=== PATIENT | female | born 1990 | race Two or more races ===

== ENCOUNTER 2017-08-26 08:10 | Emergency (ER) | payer SELFPAY ==
[2017-08-26 08:15] VITALS: RESP 16
--- NOTE | 2017-08-26 08:26 | EDPHY ---
HPI/HX/ROS/PE/MDM Narrative: CHIEF COMPLAINT: Sore throat, otalgia HISTORY OF PRESENT ILLNESS: This patient is a healthy 27 year old female complaining of a sore throat ongoing for three days. Her discomfort is primarily the right side. She finds it difficult to swallow, including saliva. She had a fever initially but this stopped yesterday around 5pm. She has been taking Advil without relief of pain. She has not been drinking much water due to difficulty and pain when swallowing. Additionally, she has noted right-sided otalgia. No history of mono. She denies interacting with any sick contacts. No chills, chest pain, shortness of breath, palpitations, vomiting, diarrhea, urinary complaints, headache, lightheadedness. REVIEW OF SYSTEMS: Aside from elements discussed in the HPI, a comprehensive 10-point review of systems was reviewed and is negative. PAST MEDICAL HISTORY: Denies. SOCIAL HISTORY: Single. Lives in [place]. Employed. VITAL SIGNS: Reviewed by me GENERAL: Well-developed, well-nourished, no respiratory distress. Speaking with a somewhat muffled voice. HEENT: Atraumatic. Eyes: No icterus, no injection. Mouth: moist mucous membranes. 3+ tonsillar hypertrophy, right greater than left, with erythema and exudates. Neck: supple with no adenopathy. LUNGS: Clear to auscultation bilaterally, no wheezes, rhonchi or rales. CARDIAC: Regular rate and rhythm, no rubs, murmurs or gallops. ABDOMEN: Soft, nontender, nondistended, bowel sounds normal. BACK: No CVA tenderness. EXTREMITIES: No trauma. No edema. Range of motion is normal throughout. NEURO: Alert and oriented, grossly nonfocal. SKIN: Warm and dry, no rash. PSYCHIATRIC: Normal mentation, no agitation. Portions of this note were transcribed by a medical claims representative. I personally performed a history, physical exam, medical decision making, and confirmed accuracy of information the transcribed note. ED Course: 27 y/o female presents with three day history of pharyngitis. Exam reveals 3+ tonsillar hypertrophy, right greater than left, with erythema and exudates. Plan for step swab. Plan to administer 15mg IV Toradol, 10mg IV Decadron, and 1L IV NS for symptom relief. Patient presentation is consistent with bacterial tonsillitis. Plan to administer 600mg IV Clindamycin. Strep screen negative. Patient is feeling better following medication administration. Plan to discharge home in good condition with referral to ENT. Prescription for Clindamycin and Decadron provided. Follow up and return precautions discussed. The patient is comfortable with this plan. MDM: Differential diagnosis for the patient's sore throat was considered including but not limited to viral pharyngitis, bacterial pharyngitis, tonsillitis, tonsillar abscess, peritonsillar abscess, foreign body, epiglottitis, bacterial tracheitis. - Data Points Medications Given: Discontinued Medications Dexamethasone (Decadron Injection) 10 mg IVP EDNOW ONE Stop: 08/26/17 08:30 Last Admin: 08/26/17 08:46 Dose: 10 mg Clindamycin Phosphate/Dextrose (Cleocin 600 Mg (Premix)) 50 mls @ 100 mls/hr IV EDNOW ONE PRN Reason: Protocol Stop: 08/26/17 08:59 Last Admin: 08/26/17 08:44 Dose: 50 mls Sodium Chloride (Ns) 1,000 mls @ 0 mls/hr IV ONCE ONE; Wide Open PRN Reason: Protocol Stop: 08/26/17 08:30 Last Admin: 08/26/17 08:43 Dose: 1,000 mls Ketorolac Tromethamine (Toradol) 15 mg IVP EDNOW ONE Stop: 08/26/17 08:32 Last Admin: 08/26/17 08:45 Dose: 15 mg General Time Seen by Provider: 08/26/17 08:20 Initial Vital Signs: Initial Vital Signs Temperature (C) 37 C 08/26/17 08:12 Heart Rate 97 08/26/17 08:12 Respiratory Rate 16 08/26/17 08:12 Blood Pressure 104/68 08/26/17 08:12 O2 Sat (%) 97 08/26/17 08:12 O2 Delivery Mode Room Air Allergies/Adverse Reactions: No Known Allergies Allergy (Verified 08/26/17 08:12) Home Medications: Medication Instructions Recorded Clindamycin HCl [Clindamycin] 300 mg PO TID #30 cap 08/26/17 Dexamethasone [Decadron 4 MG (*)] 4 mg PO DAILY 2 Days tab 08/26/17 Hydrocodone/APAP 5/325 [Buchanan 1 tab PO Q6H PRN #10 tab 08/26/17 5/325 (RX)] Departure - Departure Disposition: Home, Routine, Self-Care Clinical Impression: Tonsillitis with exudate Condition: Good Instructions: Tonsillitis (ED) Additional Instructions: Please take antibiotics as directed. Clindamycin 300 mg by mouth 3 times a day times 10 days. Drink plenty of fluid. Please take ibuprofen 600 mg by mouth every 8 hr for pain as well as anti inflammation. You been given a prescription for Decadron. Please take this as directed for the next 2 days, starting tomorrow. Please follow up with [facility] if you're not improving as expected. For your sore throat, throat lozenges and salt water gargles may be helpful in diminishing the pain. Referrals: [facility] [Other] - As per Instructions Princess Velasquez MD [Medical Doctor] - As per Instructions Prescriptions: Clindamycin HCl [Clindamycin] 300 mg PO TID #30 cap Dexamethasone [Decadron 4 MG (*)] 4 mg PO DAILY 2 Days tab Hydrocodone/APAP 5/325 [Buchanan 5/325 (RX)] 1 tab PO Q6H PRN #10 tab PRN Reason: Pain Report Scribed for: Ethel Wilson Report Scribed by: Regla Mckeon Date of Report: 08/26/17 Time of Report: 08:36
[2017-08-26] MEDS ORDERED: DEXAMETHASONE 10 MG/ML VIAL IVP ONE (08:29)
[2017-08-26] MEDS ORDERED: NS 1,000 ML IV ONE (08:29)
[2017-08-26] MEDS ORDERED: CLINDAMYCIN 600 MG/DEXTROSE 50 ML IV ONE (08:30)
[2017-08-26] MEDS ORDERED: KETOROLAC 15 MG/1 ML SDV IVP ONE (08:31)
[2017-08-26 10:06] VITALS: BP 114/78; PULSE 98; TEMP 99.7; O2SAT 95
== END 2017-08-26 10:05 | disposition home or self-care (01) ==
DX: J03.90 Acute tonsillitis, unspecified (principal); E86.9 Volume depletion, unspecified
CPT/HCPCS: 96374; J1100; J1885